=== PATIENT | female | born 1975 | race Caucasian/White ===

== ENCOUNTER 2018-02-08 09:36 | Day surgery (SDC) | payer OTHER ==
[~2018-02-08] VITALS: Ht 165.1 cm; Wt 138.6 kg
--- NOTE | ~2018-02-08 | OP ---
PATIENT NAME: ISAAC TRINIDAD MEDICAL RECORD: [id number] :79 LOCATION:[facility] ADMISSION DATE: SURGEON: TAINA FOX DO DATE OF OPERATION: 02/08/2018 PROCEDURE: EGD with biopsies. INDICATIONS FOR PROCEDURE: Nausea, heartburn, generalized abdominal pain. SCOPE: [employer] video gastroscope. MEDICATIONS: Propofol 300 mg IV per anesthesia. ESTIMATED BLOOD LOSS: Minimal. COMPLICATIONS: None. FINDINGS: Informed consent was given. The patient was made comfortable with the above medication. After reaching an adequate level of sedation by slow IV push, the patient was placed on her left side. The endoscope was advanced under direct visualization through the mouth to the second portion of duodenum. The upper, middle, and lower thirds of the esophagus appeared normal. At the GE junction, there was mild evidence of LA class A reflux induced esophagitis without ulcers or erosions. The endoscope was advanced beyond the GE junction into the stomach and retroflexed to view the cardia, where a small hiatal hernia was present. The fundus appeared normal. As the endoscope was advanced into the antrum and prepyloric region, there was some erythema and granularity in a patchy distribution consistent with possible gastritis. Cold forceps biopsies were taken to submit for histology and to rule out H. pylori. The endoscope was advanced beyond the pylorus into the duodenum where the entire exam and duodenum appeared normal. Random biopsies were taken with cold forceps to submit for histopathology. The endoscope was withdrawn from the patient. The patient tolerated the procedure well and there were no complications. IMPRESSION: 1. LA class A reflux-induced esophagitis. 2. Diminutive sliding hiatal hernia. 3. Possible gastritis with biopsies pending. PLAN AND RECOMMENDATIONS: 1. Discharge home when recovery parameters are met. 2. Follow up biopsy specimen results. 3. GERD diet and reflux precautions. 4. Omeprazole 40 mg daily. Currently, the patient is taking omeprazole 20 mg daily. We will increase this to 40 mg daily for 60 days and then return back to 20 mg dosing or H2 oskar. 5. Right upper quadrant ultrasound regarding epigastric pain and nausea. 6. Gastric emptying scan regarding epigastric pain and nausea. 7. Further recommendations pending findings of diagnostic procedures. TRANSINT:[id number] Voice Confirmation ID: [id number] DOCUMENT ID: [id number] OPERATIVE REPORT [id number] ISAAC TRINIDADTAINA GIBBONS DO at 1135 CC: [id number] DICTATION DATE: 02/08/18 1140 [employer] DIRECTOR: 02/08/18 1156 [facility] 02/08/18 [facility] [address] [place] [address]
[2018-02-08] MEDS ORDERED: CYMBALTA30 MG PO (10:08)
[2018-02-08] MEDS ORDERED: ATARAX 25 MG TA25 MG (10:09)
[2018-02-08] MEDS ORDERED: VALTREX500 MG PO (10:09)
[2018-02-08] MEDS ORDERED: AMITIZA24 MCG PO (10:10)
[2018-02-08] MEDS ORDERED: OMEPRAZOLE40 MG PO (10:11)
[2018-02-08] MEDS ORDERED: ROBAXIN500 MG PO (10:11)
[2018-02-08] MEDS ORDERED: ULTRAM50 MG PO (10:11)
[2018-02-08] MEDS ORDERED: IBUPROFEN TAB 800 PO (10:12)
[2018-02-08] MEDS ORDERED: VITAMIN D250000 UNIT PO (10:13)
[2018-02-08] MEDS ORDERED: ALEVE220 MG PO (10:14)
[2018-02-08] MEDS ORDERED: AZO PO (10:15)
[2018-02-08 10:38] LABS: HEMATOCRIT 37.1 % (36.0-48.0); HEMOGLOBIN 12.3 g/dL (12-16); MCHC 33.2 g/dL (31.0-37.0); MCV 84.5 fL (80.0-100.0); MEAN PLATELET VOLUME 10.7 fL (7.4-10.4); RBC 4.39 10x6/uL (4.00-5.40); RDW 13.9 % (11.5-14.5); WBC 11.1 10x3/uL (4.8-10.8)
[2018-02-08 10:42] VITALS: BP 146/87; Ht 165.1 cm; Wt 138.6 kg
[2018-02-08 11:13] LABS: HCG URINE NEGATIVE (NEGATIVE)
== END 2018-02-08 12:20 | disposition home or self-care (01) ==
LOC: D.OPS 09:36
PROVIDERS: Anesthesiology; Internal Medicine Gastroenterology
DX: R10.84 Generalized abdominal pain (principal); K44.9 Diaphragmatic hernia without obstruction or gangrene; K21.0 Gastro-esophageal reflux disease with esophagitis; R12 Heartburn; Z01.812 Encounter for preprocedural laboratory examination